=== PATIENT | female | born 1950 | race Caucasian/White ===

== ENCOUNTER 2017-03-22 07:13 | Day surgery (SDC) | payer OTHER ==
[~2017-03-22] VITALS: Ht 160 cm; Wt 45.0 kg
[2017-03-22] VITALS (13 sets, daily range): BP systolic 100–123; BP diastolic 52–61; PULSE 66–87; RESP 16–32; Ht 160 cm; Wt 45.0 kg
[~2017-03-22 07:13] MED LIST: CEFAZOLIN 2 GM/50 ML (PMX) 50 ML IVPB ONE; SOD CHLORIDE 0.9% 1,000 ML IV ONE
[2017-03-22] MEDS ORDERED: AMLO5TAB4 PO (07:53)
[2017-03-22] MEDS ORDERED: LISI10TA2 PO (07:53)
[2017-03-22] MEDS ORDERED: SIMV20TA PO (07:56)
[2017-03-22] MEDS ORDERED: FLUO40CA PO (07:58)
[2017-03-22] MEDS ORDERED: LATA2.5D2 BOTH EYES (07:58)
--- NOTE | 2017-03-22 09:36 | HPN ---
Date/Time of Note Date/Time of Note DATE: 03/22/17 TIME: 09:35 Interval H&P Admission Note Pt. seen H&P reviewed: No system changes ALICJA SHI MD Mar 22, 2017 09:36
[2017-03-22] MEDS ORDERED: MIDAZOLAM 1 MG/ML 2 ML INJ ONE (09:56)
[2017-03-22] MEDS ORDERED: ROPIVACAINE 0.5 % 30 ML VIAL ONE (09:56)
[2017-03-22] MEDS ORDERED: ROCURONIUM 50 MG INJ ONE (09:56)
[2017-03-22] MEDS ORDERED: NEOSTIGMINE 3 MG/3 ML SYRINGE ONE (09:56)
[2017-03-22] MEDS ORDERED: GLYCOPYRROLATE 0.4 MG INJ ONE (09:56)
[2017-03-22] MEDS ORDERED: PROPOFOL 20 ML ONE (09:56)
[2017-03-22] MEDS ORDERED: METOCLOPRAMIDE 10 MG INJ ONE (09:56)
[2017-03-22] MEDS ORDERED: BUPIVACAINE 0.25% (MPF) 30 ML INJ ONE (09:58)
[2017-03-22] MEDS ORDERED: CEFAZOLIN 1 GM INJ ONE (10:03)
[2017-03-22] MEDS ORDERED: POLYMYXIN/BACITRACIN 1L IRRIG ONE (10:11)
[2017-03-22] MEDS ORDERED: ONDANSETRON 4 MG INJ IV PRN ×2 (10:30→11:30)
[2017-03-22] MEDS ORDERED: HYDROmorphONE (0.2 MG/ML) 10ML SYG IV PRN ×2 (10:30)
[2017-03-22] MEDS ORDERED: EPHEDrine SULFATE 50 MG/5 ML SYG IV PRN (10:30)
[2017-03-22] MEDS ORDERED: LABETALOL HCL 20MG INJ IV PRN (10:30)
[2017-03-22] MEDS ORDERED: hydrALAzine 20 MG INJ IV PRN (10:30)
[2017-03-22] MEDS ORDERED: DIPHENHYDRAMINE 50 MG INJ IV PRN (10:30)
[2017-03-22] MEDS ORDERED: METOCLOPRAMIDE 10 MG INJ IV PRN (10:30)
[2017-03-22] MEDS ORDERED: OXYCODONE/ACETAMINOPHEN (5/325) TAB PO PRN ×4 (10:30→11:30)
[2017-03-22] MEDS ORDERED: MEPERIDINE 25 MG INJ IV PRN (10:30)
[2017-03-22] MEDS ORDERED: EPHEDrine SULFATE 50 MG/5 ML SYG ONE (11:07)
[2017-03-22] MEDS ORDERED: FENTAnyl 50 MCG/ML VIAL ONE (11:19)
--- NOTE | 2017-03-22 11:21 | OPR ---
Date/Time of Note Date/Time of Note DATE: 03/22/17 TIME: 11:15 Operative Report Procedure Date: Mar 22, 2017 Preoperative Diagnosis Right inguinal hernia without obstruction or gangrene Postoperative Diagnosis Right inguinal hernia without obstruction or gangrene Operation Performed 1. Laparoscopic right inguinal hernia repair with mesh 2. Right ilioinguinal nerve block Surgeon: ALICJA SHI MD Anesthesia Type: general Anesthesiologist: CRISTOPHER HARGROVE MD Estimated Blood Loss: minimal Transfusion Required: no Specimen: none Grafts/Implants 10 x 15 cm Covidien Symbotex mesh Complications: no Pt Condition Post Procedure: stable Disposition: PACU Indications The patient is a 66-year-old female who presented to the office complaining of a painful [right] groin bulge. She was diagnosed on clinical exam as having a [ right] inguinal hernia. The patient was scheduled for laparoscopic right inguinal hernia repair with mesh; possible open to prevent sequelae of hernia disease which include, but are not limited to: Incarceration and strangulation. All risks and benefits of the procedure including but not limited to: Wound infection, excessive bleeding, postoperative seroma/hematoma formation, nerve injury which may be temporary versus permanent, injury to the reproductive organs, injury to intra-abdominal organs necessitating subsequent operation, hernia recurrence, chronic pain, etc. were all explained to the patient full detail. The patient was a smoker. She was counseled regarding smoking cessation as well as the complications associated with smoking including wound complications, mesh infection, hernia recurrence, etc. The patient had quit smoking for 4 weeks prior to surgery. The patient fully understood and wished to proceed with the procedure. Informed consent was therefore obtained. Operative\Procedure Findings Right inguinal hernia. There was no left inguinal hernias. Procedure Description The patient was brought to the operating room and placed supine on the operating table. Bilateral sequential compression devices were placed on both lower extremities and a dose of prophylactic broad-spectrum perioperative intravenous antibiotics was given. After the induction of smooth general endotracheal anesthesia the patient's abdomen, groins were prepped and draped in standard surgical fashion. A supraumbilical incision was made using a 15 blade scalpel and a Veress needle was used to access the intra-abdominal cavity atraumatically. Pneumoperitoneum was obtained and the Veress needle was exchanged for a 12 mm trocar through which a. 5 mm 30 laparoscope was placed. Diagnostic laparoscopy showed a small sized right inguinal hernia. There was no left inguinal hernia. There was no other intra-abdominal pathology. Two further working ports were placed. They were both 5 mm ports placed 2 cm above the umbilicus in the right and left midclavicular lines. All port sites were anesthetized with [0.25% Marcaine] prior to incision. The patient was then placed in reverse Trendelenburg position. Starting from the anterior superior iliac spine on the [right] side the peritoneum was mobilized off of the underlying transversalis fascia to the level of the [right] median umbilical ligament. Dissection was continued medially and Cordell's ligament and the pubis were identified. The hernia sac was then reduced back into the intra-abdominal cavity. Once the hernia sac was completely reduced back into the abdominal cavity a 10 x 15 cm piece of Covidien Symbotex mesh was used to repair the hernia defect. It covered all possible openings of the myopectineal orifice. The mesh was soaked in antibiotic containing irrigation prior to inserting it into the field. The mesh was secured in place using a secure strap tacker. With the repair complete hemostasis was inspected for and noted to be total. Pneumoperitoneum was then decreased to 8 mmHg and the peritoneum was reapproximated over the mesh using a secure strap tacker. Once this was complete pneumoperitoneum was released and all trocars were withdrawn under direct vision. The fascia of the umbilical port site was reapproximated [using a 0 Vicryl suture in [id number] fashion.] Subcutaneous tissues were irrigated with more irrigation. Further local anesthesia was applied around the skin of the incision sites. At this point attention was turned to the [right] ilioinguinal nerve block. 10 mL of 0.25% Marcaine with epinephrine were injected in a radial fashion proximally 2 cm medial and inferior to the [right] anterior superior iliac spine. Once this was completed the skin of the incision sites was reapproximated using 4-0 Monocryl sutures in subcuticular fashion. Incisions were cleaned and Dermabond was applied. The patient was awoken from anesthesia and transported to the recovery room in stable condition. All counts were correct at the end of the case x 2. ALICJA SHI MD Mar 22, 2017 11:21
[2017-03-22] MEDS ORDERED: morphine 2 MG INJ IV PRN (11:30)
[2017-03-22] MEDS: HYDROmorphONE (0.2 MG/ML) 10ML SYG IV PRN ×3 (11:52→12:06)
== END 2017-03-22 13:38 | disposition home or self-care (01) ==
LOC: SDS 07:13 → SUR 07:13
PROVIDERS: ATTEND Surgery
DX: K40.90 Unilateral inguinal hernia, without obstruction or gangrene, not specified as recurrent (principal); I10 Essential (primary) hypertension; E78.5 Hyperlipidemia, unspecified
CPT/HCPCS: 49650; J0690; J1170; J2250; J2405; J2765; J2795; J7030; Z7512; Z7610; J2710; J3010